=== PATIENT | female | born 1960 | race American Indian/Alaskan Native ===

== ENCOUNTER 2019-12-18 09:25 | Day surgery (SDC) | payer OTHER ==
[~2019-12-18 09:25] MED LIST: CIPR500 PO; CLON.5 PO; ESCI10 PO; HORMONES; HYDROCHLOROTHIA25 MG PO; METR500 PO; Norco 5-325 Ta1 EACH PO; OMEP20ER PO; PROM25 PO; ZOLP10 PO
--- NOTE | 2019-12-18 10:27 | NUR ---
Ambulatory in Day Surgery. Surgical site prepped with 2% Chlorhexidine cloth wipe. History, Chart, Medications and Allergies reviewed before start of procedure. Lungs clear T/O to Auscultation. Patient confirms NPO status and agrees with scheduled surgery. Pre-Op teaching done. Pt verbalizes understanding. Patient States Post-Procedure ride home has been arranged. Patient reports completing Chlorhexadine shower X2 prior to admission to hospital.
--- NOTE | 2019-12-18 16:50 | NUR ---
12/18/19 1650 Jose Shelby LATE ENTRY: 1500 DR. HERNANDEZ, GENERAL SURGEON, ARRIVED IN OR PER DR. HENDERSON'S REQUEST TO R/O BOWEL INJURY AT THE SITE OF LEFT OVARIAN ABCESS
--- NOTE | 2019-12-18 18:03 | NUR ---
WONDERLY IN TO CONSULT WITH PATIENT REGARDING THE PROCEDURE.
--- NOTE | 2019-12-18 18:13 | NUR ---
PT UP WITH STEADY GAIT. ASSISTED TO RESTROOM.
--- NOTE | 2019-12-18 19:05 | NUR ---
Discharge instructions reviewed with patient. Patient verbalizes understanding. Copy given to patient to take home. Patient up to Ambulate independently. Gait steady. Discharged via wheelchair to private car for ride home.
== END 2019-12-18 23:05 | disposition home or self-care (01) ==
LOC: ORSCMMR 09:25 → ORD 11:00 → ORSCMMR 23:05
PROVIDERS: Obstetrics & Gynecology
PROC: 0WBH4ZZ Excision of Retroperitoneum, Percutaneous Endoscopic Approach (ICD-10-PCS; principal; 2019-12-18 11:00)
PROC: 0UB98ZX Excision of Uterus, Via Natural or Artificial Opening Endoscopic, Diagnostic (ICD-10-PCS; principal; 2019-12-18 11:00)
PROC: 0UB74ZZ Excision of Bilateral Fallopian Tubes, Percutaneous Endoscopic Approach (ICD-10-PCS; principal; 2019-12-18 11:00)
PROC: 0UB24ZZ Excision of Bilateral Ovaries, Percutaneous Endoscopic Approach (ICD-10-PCS; principal; 2019-12-18 11:00)
DX: N95.0 Postmenopausal bleeding (principal); N83.202 Unspecified ovarian cyst, left side; R10.2 Pelvic and perineal pain; N84.0 Polyp of corpus uteri; I10 Essential (primary) hypertension; F41.9 Anxiety disorder, unspecified; Z79.899 Other long term (current) drug therapy
CPT/HCPCS: 87070; 87205; J0690; J1100; J1885; J2250; J2405; J2704; J2710; J3010; J7120

== ENCOUNTER 2020-07-12 09:39 | Day surgery (SDC) | payer OTHER ==
[~2020-07-12] VITALS: Ht 160 cm; Wt 77.4 kg
[~2020-07-12 09:39] MED LIST changes: +EPIPEN 2-P0.3 MG/0.1 IM
[2020-07-14] MEDS ORDERED: CLON.5 PO (21:22)
== END 2020-07-12 12:35 | disposition home or self-care (01) ==
LOC: ORSCSDS 09:39
PROVIDERS: Surgery
PROC: 0DBL8ZX Excision of Transverse Colon, Via Natural or Artificial Opening Endoscopic, Diagnostic (ICD-10-PCS; principal; 2020-07-12 11:00)
DX: N82.3 Fistula of vagina to large intestine (principal); Z01.818 Encounter for other preprocedural examination; Z80.0 Family history of malignant neoplasm of digestive organs; K57.30 Diverticulosis of large intestine without perforation or abscess without bleeding; Z87.19 Personal history of other diseases of the digestive system; I10 Essential (primary) hypertension; Z87.891 Personal history of nicotine dependence; Z79.899 Other long term (current) drug therapy
CPT/HCPCS: 88305; J2704; J7120